=== PATIENT | male | born 1990 | race African-American/Black ===

== ENCOUNTER 2018-02-02 01:22 | Emergency (ER) | payer OTHER ==
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
[2018-02-02 02:03] VITALS: BP 137/74; PULSE 105; TEMP 98.6; BMI 23.7
== END 2018-02-02 02:33 | disposition home or self-care (01) ==
LOC: JER 01:22
DX: Z77.21 Contact with and (suspected) exposure to potentially hazardous body fluids (principal); Y35.891A Legal intervention involving other specified means, law enforcement official injured, initial encounter; Y93.89 Activity, other specified; Y92.89 Other specified places as the place of occurrence of the external cause; Y99.0 Civilian activity done for income or pay
CPT/HCPCS: 99281-25

== ENCOUNTER 2019-03-08 22:21 | Emergency (ER) | payer OTHER ==
[2019-03-08 22:31] VITALS: BP 144/87; PULSE 92; TEMP 98.3; BMI 22.4
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
--- NOTE | 2019-03-08 23:08 | PDOC ---
Attending Attestation - Resident Resident Name: RenayFelipe - ED Attending Attestation I have performed the following: I have examined & evaluated the patient, The case was reviewed & discussed with the resident, I agree w/resident's findings & plan, Exceptions are as noted - HPI HPI: 03/08/19 23:07 Reviewed Residents HPI - Physicial Exam PE: 03/08/19 23:07 Reviewed Residents PE - Medical Decision Making 03/08/19 23:08 Low risk body fluid exposure to intact skin no indication for treatment treatment offered and declined by officers Findings, the need for follow-up and strict return instructions discussed with patient.
== END 2019-03-08 23:18 | disposition home or self-care (01) ==
LOC: JER 22:21
DX: Z77.21 Contact with and (suspected) exposure to potentially hazardous body fluids (principal); X58.XXXA Exposure to other specified factors, initial encounter; Y93.89 Activity, other specified; Y92.89 Other specified places as the place of occurrence of the external cause; Y99.0 Civilian activity done for income or pay; Y35.891A Legal intervention involving other specified means, law enforcement official injured, initial encounter
CPT/HCPCS: 99282-25

== ENCOUNTER 2020-04-05 04:24 | Emergency (ER) | payer OTHER ==
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
[2020-04-05 04:32] VITALS: TEMP 98.5; BMI 25.0
[2020-04-05] MEDS ORDERED: ACETAMINOPHEN 325 MG TABLET (FP) ONE (04:56)
[2020-04-05] MEDS ORDERED: ACETAMINOPHEN 325 MG TABLET (FP) PO ONE (06:41)
[2020-04-05 08:33] VITALS: BP 133/97; PULSE 67
== END 2020-04-05 08:45 | disposition home or self-care (01) ==
LOC: FER 04:24
DX: S09.90XA Unspecified injury of head, initial encounter (principal)
CPT/HCPCS: 70450-TC; 70486-TC; 72125-TC; 99285-25

== ENCOUNTER 2022-06-29 01:17 | Emergency (ER) | payer OTHER ==
[2022-06-29 01:35] VITALS: BP 129/90; PULSE 65; RESP 18; TEMP 98.1; BMI 26.4
== END 2022-06-29 04:00 | disposition home or self-care (01) ==
LOC: JER 01:17
DX: S39.012A Strain of muscle, fascia and tendon of lower back, initial encounter (principal); S99.912A Unspecified injury of left ankle, initial encounter; S86.911A Strain of unspecified muscle(s) and tendon(s) at lower leg level, right leg, initial encounter; Y99.8 Other external cause status
CPT/HCPCS: 72070-TC-FY; 72100-TC-FY; 73560-TC-RT-FY; 73610-TC-LT-FY; 73630-TC-LT; 99284-25

== ENCOUNTER 2022-08-31 04:08 | Emergency (ER) | payer OTHER ==
[2022-08-31 04:11] VITALS: BP 134/88; PULSE 78; RESP 14; TEMP 98.9; BMI 27.5
[2022-08-31] MEDS ORDERED: FLUORESCEIN NA 1 EA STRIP OD ONE (04:17)
[2022-08-31] MEDS ORDERED: TETRACAINE 0.5% HCL 0.6ML DROPPER.BOTTLE OD ONE (04:17)
[2022-08-31] MEDS ORDERED: FLUORESCEIN NA 1 EA STRIP ONE (04:18)
[2022-08-31] MEDS ORDERED: TETRACAINE 0.5% OPHTH SOLN 2 ML BOTTLE ONE (04:18)
== END 2022-08-31 04:43 | disposition home or self-care (01) ==
LOC: FER 04:08
DX: H53.141 Visual discomfort, right eye (principal)
CPT/HCPCS: 99283-25

== ENCOUNTER 2023-01-01 03:42 | Emergency (ER) | payer OTHER ==
[2023-01-01 03:48] VITALS: BP 151/97; PULSE 94; RESP 18; TEMP 98.9; BMI 26.2
== END 2023-01-01 04:24 | disposition home or self-care (01) ==
LOC: FER 03:42
DX: Z77.21 Contact with and (suspected) exposure to potentially hazardous body fluids (principal)
CPT/HCPCS: 99282-25

== ENCOUNTER 2023-03-06 01:42 | Emergency (ER) | payer OTHER ==
[2023-03-06 01:49] VITALS: BP 162/101; PULSE 108; RESP 17; TEMP 98.3; BMI 26.9
[2023-03-06] MEDS ORDERED: KETOROLAC TROMETHAMINE 30 MG/1 ML VIAL IM ONE (02:01)
[2023-03-06] MEDS ORDERED: ACETAMINOPHEN 325 MG TABLET (FP) PO ONE (02:01)
[2023-03-06] MEDS ORDERED: KETOROLAC TROMETHAMINE 30 MG/1 ML VIAL ONE (02:02)
[2023-03-06] MEDS ORDERED: ACETAMINOPHEN 325 MG TABLET (FP) ONE (02:02)
== END 2023-03-06 02:14 | disposition home or self-care (01) ==
LOC: FER 01:42
PROC: 3E0233Z Introduction of Anti-inflammatory into Muscle, Percutaneous Approach (ICD-10-PCS; principal; 2023-03-06)
DX: M79.602 Pain in left arm (principal); X50.9XXA Other and unspecified overexertion or strenuous movements or postures, initial encounter
CPT/HCPCS: 99284-25

== ENCOUNTER 2023-09-01 02:16 | Emergency (ER) | payer OTHER ==
[2023-09-01 02:19] VITALS: BP 140/95; PULSE 76; RESP 14; TEMP 98.4; BMI 27.5
== END 2023-09-01 02:32 | disposition home or self-care (01) ==
LOC: FER 02:16
DX: S63.641A Sprain of metacarpophalangeal joint of right thumb, initial encounter (principal); M79.621 Pain in right upper arm; M79.644 Pain in right finger(s); W19.XXXA Unspecified fall, initial encounter
CPT/HCPCS: 99282-25